=== PATIENT | female | born 1995 | race Hispanic/Latino ===

== ENCOUNTER → 2022-12-30 | Outpatient (CLI) | payer BC ==
[2022-12-30 15:32] LABS: BASOPHILS # (AUTO) 0.03 K/uL (0.00-0.20); BASOPHILS % (AUTO) 0.5 % (0.0-5.0); EOSINOPHILS # (AUTO) 0.08 K/uL (0.00-0.70); EOSINOPHILS % (AUTO) 1.4 % (0.0-8.0); HEMATOCRIT 39.3 % (36-48); IMMATURE GRANULOCYTE ABSOLUTE 0.01 K/uL (0-1); LYMPHOCYTES # (AUTO) 1.7 K/uL (1.0-4.8); LYMPHOCYTES % (AUTO) 29.9 % (21.0-51.0); MEAN CORPUSCULAR HEMOGLOBIN 28.9 pg (27.0-33.0); MEAN CORPUSCULAR HGB CONC 33.6 g/dL (32.0-36.0); MEAN CORPUSCULAR VOLUME 86.2 fL (79-99); MONOCYTES # (AUTO) 0.4 K/uL (0.1-1.0); MONOCYTES % (AUTO) 7.2 % (3.0-13.0); NEUTROPHILS # (AUTO) 3.4 K/uL (1.8-7.7); NEUTROPHILS % (AUTO) 60.8 % (40.0-77.0); PLATELET COUNT (AUTO) 247 K/uL (130-400); RED BLOOD CELL COUNT(AUTO) 4.56 MIL/uL (4.00-5.50); RED CELL DISTRIBUTION WIDTH 11.9 % (11.0-15.5); WHITE BLOOD COUNT (AUTO) 5.6 K/uL (4.8-10.8)
[2023-01-03 20:09] LABS: ALLERGEN ALTERNARIA TENUIS <0.10 kU/L (Class 0); ALLERGEN BERMUDA GRASS <0.10 kU/L (Class 0); ALLERGEN BOX ELDER/MAPLE TREE <0.10 kU/L (Class 0); ALLERGEN COCKROACH GERMAN <0.10 kU/L (Class 0); ALLERGEN D.FARINAE(MITE) <0.10 kU/L (Class 0); ALLERGEN MOUNTAIN CEDAR <0.10 kU/L (Class 0); ALLERGEN PECAN TREE <0.10 kU/L (Class 0); ALLERGEN RAGWEED SHORT COMMON <0.10 kU/L (Class 0); ALLERGEN ROUGH MARSHELDER <0.10 kU/L (Class 0); ALLERGEN WHITE OAK TREE <0.10 kU/L (Class 0); COMMON SILVER BIRCH <0.10 kU/L (Class 0); PENICILLIUM CHRYSOGEN <0.10 kU/L (Class 0); SHEEP SORREL <0.10 kU/L (Class 0)
== END | disposition home or self-care (01) ==
LOC: RAH 12:48
PROVIDERS: ATTEND Internal Medicine Critical Care Medicine
DX: J45.40 Moderate persistent asthma, uncomplicated (principal); K76.0 Fatty (change of) liver, not elsewhere classified; M47.815 Spondylosis without myelopathy or radiculopathy, thoracolumbar region
CPT/HCPCS: 36415; 71250; 82785; 85025; 86003; 86005

== ENCOUNTER → 2023-05-09 | Outpatient (CLI) | payer BC | END | disposition home or self-care (01) | LOC: RAH 15:03 | PROVIDERS: ATTEND Internal Medicine | DX: J45.40 Moderate persistent asthma, uncomplicated (principal); R91.8 Other nonspecific abnormal finding of lung field | CPT/HCPCS: 71047 ==

== ENCOUNTER → 2025-02-11 | Outpatient (CLI) | payer BC ==
--- NOTE | 2025-02-11 14:50 | HMCIMG ---
CHEST 2VWS REASON: PECTUS EXCAVATUM,MILD INTERMMED ASTHMA COMPARISON: Prior chest radiograph from 05/09/2023 is available. FINDINGS: Two views of the chest were obtained. Lungs are clear. Heart size is normal. There is no pulmonary vascular congestion. Mediastinum and bony thorax appear unremarkable. IMPRESSION: No acute cardiopulmonary process and unchanged from prior study..
== END | disposition home or self-care (01) ==
LOC: RAH 12:55
PROVIDERS: ATTEND Internal Medicine
DX: J45.20 Mild intermittent asthma, uncomplicated (principal)
CPT/HCPCS: 71046